=== PATIENT | male | born 1985 | race Caucasian/White ===

== ENCOUNTER 2025-02-04 19:29 | Observation (INO) ==
[2025-02-04 20:07] LABS: BLOOD/HEMOGLOBIN,URINE NEGATIVE (NEGATIVE); LEUKOCYTE ESTERASE ,URINE NEGATIVE (NEGATIVE); NITRITES,URINE NEGATIVE (NEGATIVE)
[2025-02-04 20:15] LABS: MEAN PLATELET VOLUME 8.1 fL (7.4-11.0); RED CELL DISTRIBUTION WIDTH 15.7 % (11.6-16.5)
[2025-02-04 20:17] LABS: APPEARANCE,URINE CLEAR (CLEAR)
[2025-02-04 20:18] LABS: CALCIUM OXALATE CRYSTALS,UR MANY /HPF (NEGATIVE); SQUAMOUS EPITHELIAL CELL,UR FEW /HPF (NEGATIVE)
[2025-02-04 20:24] LABS: CREATININE 1.10 mg/dL (0.70-1.30); eGFR NON BLACK RACES > 60 (>60)
--- NOTE | 2025-02-04 20:31 | DR.EXTPAIN ---
HPI Time seen Time Seen by Provider: 02/04/25 20:29 PCP Primary Care Physician: deloris Complaint/Symptoms Chief Complaint Doctor Comments: 39-year-old male presents to the ED from home POV with bilateral leg swelling x 3 days Chief Complaint:: pt c/o bilateral feet and leg swelling that started about three days ago and seem to be getting worse. Source History Provided: Patient Mode of arrival Mode of Arrival: Ambulatory Timing Onset of Chief Complaint: 02/04/25 PMH PMH Past Medical History: Yes Past Medical History: Arthritis, Depression, Gout and Hypertension Past Surgical History: No Surgical History: Other Family History History of Family Medical Conditions: Yes Family Medical History: Coronary Artery Disease and Hypertension Social History Alcohol Use: None Do you use any recreational Drugs:: Yes (Marijuana) Lives With: Family Lives Where: Home Infectious screening Have you traveled outside the country in the last 6 months?: No Isolation: Standard ROS Review of Systems Constitutional: No Symptoms Reported Eyes: No Symptoms Reported ENTM: No Symptoms Reported Respiratoy: No Symptoms Reported Cardiovascular: See HPI and Other (Bilateral leg swelling) Gastrointestinal/Abdominal: No Symptoms Reported Genitourinary: No Symptoms Reported Neurological: No Symptoms Reported Musculoskeletal: No Symptoms Reported Integumentary: No Symptoms Reported Hematologic/Lymphatic: No Symptoms Reported Endocrine: No Symptoms Reported Psychiatric: No Symptoms Reported All Other Systems: Reviewed and Negative PE Vital Signs Vitals: Vital Signs Temperature 97.8 F Pulse Rate 90 Respiratory Rate 20 Blood Pressure 142/68 O2 Sat by Pulse Oximetry 100 General Limitations: No Limitations General Appearance: Alert and In No Apparent Distress Head Head Exam: Normal Inspection Eyes Eye exam: Normal Appearance ENT ENT Exam: Normal Exam Neck Neck Exam: Normal Inspection Chest Chest Inspection: Normal Inspection Respiratory Respiratory Exam: Normal Lung Sounds Bilat Cardiovascular Cardiovascular Exam: Regular Rate and Normal Rhythm Abdominal Exam Abdominal Exam: Normal Inspection, Normal Bowel Sounds and Soft Extremities Extremities Exam: Normal Inspection Lower Extremities Lower Leg Exam: Full ROM and Swelling Back Back Exam: Normal Inspection Neurological Neurological Exam: Alert, Oriented X3 and CN II-XII Intact Psychiatric Psychiatric Exam: Normal Affect and Normal Mood Skin Skin Exam: Warm, Dry, Intact and Normal Color COURSE Treatment Treatment: Discussed with patient reviewed findings patient agrees to admission. Discussed with Dr. Encinas will admit ROR Labs Reviewed 02/04/25 20:03 02/04/25 20:03 Laboratory: WBC 11.5 X10^3/uL (3.6-10.0) H 02/04/25 20:03 RBC 2.68 X10^6/uL (4.7-6.0) L 02/04/25 20:03 Hgb 9.8 g/dL (13.5-18.0) L 02/04/25 20:03 Hct 28.3 % (42.0-54.0) L 02/04/25 20: MCV 105.5 fL (80.0-100.0) H 02/04/25 20: MCH 36.6 pg (27.0-34.0) H 02/04/25 20: MCHC 34.7 g/dL (33.0-35.0) 02/04/25 20: RDW 15.7 % (11.6-16.5) 02/04/25 20: Plt Count 124 X10^3/uL (150.0-450.0) L 02/04/25 20: Plt Count Comment Decreased (ADEQUATE) 02/04/25 20: MPV 8.1 fL (7.4-11.0) 02/04/25 20: Neut % (Auto) 61.1 % (42.0-75.0) 02/04/25 20: Lymph % (Auto) 24.4 % (21.0-51.0) 02/04/25 20: [place] % (Auto) 7.5 % (0.0-13.0) 02/04/25 20: Eos % (Auto) 5.7 % (0.9-2.9) H 02/04/25 20: Baso % (Auto) 1.3 % (0.2-1.0) H 02/04/25 20:03 Neut # (Auto) 7.0 x10^3/uL (2.2-4.8) H 02/04/25 20:03 Lymph # (Auto) 2.8 X10^3/uL (1.3-2.9) 02/04/25 20:03 [place] # (Auto) 0.9 x10^3/uL (0.3-0.8) H 02/04/25 20:03 Eos # (Auto) 0.7 x10^3/uL (0.0-0.2) H 02/04/25 20:03 Baso # (Auto) 0.2 X10^3/uL (0.0-0.1) H 02/04/25 20:03 Absolute Nucleated RBC 0.2 /100WBC 02/04/25 20:03 Plt Morphology Comment Normal (NORMAL) 02/04/25 20: RBC Morphology Abnormal (NORMAL) 02/04/25 20: Macrocytosis 1+ A 02/04/25 20:03 Sodium 139 mmol/L (136-145) 02/04/25 20:03 Corrected Sodium TNP 02/04/25 20: Potassium 3.7 mmol/L (3.5-5.1) 02/04/25 20: Chloride 104 mmol/L (98-107) 02/04/25 20: Carbon Dioxide 25.8 mmol/L (21-32) 02/04/25 20: BUN 7 mg/dL (7-18) 02/04/25 20: Creatinine 1.10 mg/dL (0.70-1.30) 02/04/25 20:03 Est GFR (MDRD) Af Amer > 60 (>60) 02/04/25 20:03 Est GFR (MDRD) Non-Af > 60 (>60) 02/04/25 20: Glucose 95 mg/dL (65-99) 02/04/25 20: Calcium 8.5 mg/dL (8.5-10.1) 02/04/25 20: Corrected Calcium TNP 02/04/25 20: Total Bilirubin 5.60 mg/dL (0.2-1.0) H 02/04/25 20:03 AST 92 Units/L (15-37) H 02/04/25 20:03 ALT 37 Units/L (12-78) 02/04/25 20:03 Alkaline Phosphatase 203 Units/L (46-116) H 02/04/25 20: B-Natriuretic Peptide 131 pg/mL (0-79) H 02/04/25 20:03 Total Protein 7.7 g/dL (6.4-8.2) 02/04/25 20: Albumin 3.4 g/dL (3.4-5.0) 02/04/25 20: Globulin 4.3 g/dL (2.5-4.5) 02/04/25 20: Albumin/Globulin Ratio 0.8 Ratio (1.1-2.1) L 02/04/25 20: Specimen Type Clean catch urine 02/04/25 20: Urine Color Yellow (YELLOW) 02/04/25 20: Urine Appearance Clear (CLEAR) 02/04/25: Urine pH 6.0 (5.0 - 8.0) 02/04/25 20: Ur Specific [place] 1.020 (1.000-1.030) 02/04/25: Urine Protein 2+ (NEGATIVE) 02/04/25: Urine Glucose (UA) Negative (NEGATIVE) 02/04/25: Urine Ketones Negative (NEGATIVE) 02/04/25 20: Urine Blood Negative (NEGATIVE) 02/04/25: Urine Nitrite Negative (NEGATIVE) 02/04/25: Urine Bilirubin Negative (NEGATIVE) 02/04/25: Urine Urobilinogen 1+ (NORMAL) 02/04/25 20: Ur Leukocyte Esterase Negative (NEGATIVE) 02/04/25: Urine RBC 10-20 /HPF (0-3) A 02/04/25 20: Urine WBC 0-2 /HPF (0-5) 02/04/25 20: Ur Squamous Epith Cells Few /HPF (NEGATIVE) 02/04/25 20: Calcium Oxalate Crystal Many /HPF (NEGATIVE) 02/04/25 20: Urine Bacteria Negative /HPF (NEGATIVE) 02/04/25 20: Granular Casts Moderate /LPF (NEGATIVE) 02/04/25 20: Urine Mucus Many /HPF (NEGATIVE) 02/04/25 20: Ur Culture Indicated? No/not indicated 02/04/25 20: Opioid Opioid Risk Tool Age (Maximo box if 16-45): No History of Preadolescent Sexual Abuse: No Total: 0 Total Score Risk Category: Low Risk Copyright: Tono GHOSH predicting aberrant behaviors Discharge Plan Diagnosis Discharge Problem: Elevated liver function tests, Ascites Discharge Plan Patient Disposition: 09 ADMITTED INPATIENT Condition: Stable Prescriptions: No Action [facility] Concerns: Post Hospitalization: new medications and changes needed to prevent readmission or further decline. Pt educated and given instructions on all concerns. Plan of Treatment: Continue with present treatment and follow up plan. Pt is to keep follow up appointment as instructed and take medications as ordered. Follow ups/Referrals Follow ups/Referrals: NFD,None [Primary Care Provider] - 3 days Instructions Print Language: CITIZEN OF [place]
[2025-02-04 20:41] LABS: PLATELET MORPHOLOGY COMMENT NORMAL (NORMAL)
--- NOTE | 2025-02-04 22:47 | CT ---
EXAM: CT ABDOMEN AND PELVIS WITHOUT CONTRAST HISTORY: pt c/o bilateral feet and leg swelling that started about three days ago and seem to be getting worse; ELEV BILIRUBIN, BLOOD IN URINE ; GOUT, HTN COMPARISON: None TECHNIQUE: Axial images were obtained of the abdomen and pelvis without IV contrast. Sagittal and coronal reformatted images were provided. All images were reviewed in a variety of windows and levels. RADIATION REDUCTION TECHNIQUE: Automated exposure control, adjustment of the mA or kV according to patient size, or iterative reconstruction techniques were used. FINDINGS: Please note that lack of IV contrast does limit evaluation of the soft tissues and vascular detail. The visualized lower lung zones are clear. The heart size is within normal limits. There is no evidence of a pericardial effusion. The pancreas, adrenal glands, and kidneys are grossly unremarkable. Gallbladder is distended. The liver is slightly decreased in size suggesting cirrhosis. The spleen is mildly enlarged measuring 14 cm in length. There is a moderate volume of ascites throughout the abdomen and pelvis. There is no evidence of stones or signs of obstructive uropathy. The stomach, small bowel, and colon are grossly unremarkable. There are no inflammatory changes in the right lower quadrant to suggest secondary signs of acute appendicitis. Normal appendix right lower quadrant. There is no evidence of retroperitoneal or mesenteric lymphadenopathy. The visualized bones are intact. There are no concerning lytic or blastic lesions identified. IMPRESSION: Moderate volume ascites within the abdomen and pelvis. Mild splenomegaly with suspected cirrhotic liver. THIS IS AN ELECTRONICALLY VERIFIED FINAL REPORT 02/04/2025 10:44 PM - Electronically signed by Leon Trinh MD
[2025-02-04] MEDS ORDERED: NORCO 5/325 MG TAB PO PRN (23:20)
[2025-02-04] MEDS ORDERED: CONSULT PHARMACY - POTASSIUM & MAGNESIUM XX SCH (23:45)
[2025-02-05 02:14] VITALS: BMI 31.3
[2025-02-05] MEDS: ULTRAM PO PRN (04:27)
[2025-02-05 05:54] LABS: MEAN PLATELET VOLUME 8.1 fL (7.4-11.0); RED CELL DISTRIBUTION WIDTH 15.9 % (11.6-16.5)
[2025-02-05 06:12] LABS: PLATELET MORPHOLOGY COMMENT NORMAL (NORMAL)
[2025-02-05 06:13] LABS: COR CA(FOR HYPOALB) 9.0 mg/dL (8.5-10.1); CREATININE 0.94 mg/dL (0.70-1.30); eGFR NON BLACK RACES > 60 (>60)
[2025-02-05] MEDS: TYLENOL 325 MG TAB PO PRN ×2 (08:00→23:57)
[2025-02-05] MEDS ORDERED: ROXICODONE TAB 5 MG PO PRN (10:14)
[2025-02-05] MEDS: ALDACTONE TAB 25 MG PO SCH (11:06)
[2025-02-05] MEDS: LASIX IVP NR (11:06)
[2025-02-05] MEDS ORDERED: PHARMACY CONSULT XX SCH (12:00)
[2025-02-05] MEDS: COLCRYS TAB 0.6 MG PO ONE ×2 (12:54→13:56)
--- NOTE | 2025-02-05 14:25 | US ---
EXAM: ULTRASOUND LIVER HISTORY: > liver enzymes , cirrosis; COMPARISON: CT dated 02/04/2025. TECHNIQUE: Ultrasound of the right upper quadrant was performed. Color and spectral doppler imaging was utilized. FINDINGS: Liver/bile ducts: Heterogeneous and diffusely hyperechoic parenchyma. No focal liver lesion identified. No intrahepatic biliary dilatation. Common bile duct is not visualized. Dilated portal vein with recannulated umbilical vein, compatible with portal hypertension. Small volume perihepatic ascites. Gallbladder: Mildly distended. Layering debris/sludge. No shadowing gallstones. No significant gallbladder wall thickening. IMPRESSION: 1. Hepatic steatosis with heterogeneous parenchyma. Prominent portal vein with recannulated umbilical vein and small volume ascites. Findings are suggestive of cirrhosis and portal hypertension. 2. No evidence of biliary dilatation. Gallbladder sludge/layering debris. THIS IS AN ELECTRONICALLY VERIFIED FINAL REPORT 02/05/2025 2:21 PM - Electronically signed by Hubert Merlos MD
--- NOTE | 2025-02-05 16:15 | RAD ---
EXAM: ANKLE, RIGHT HISTORY: RT ANKLE PAIN, SWELLING; COMPARISON: None. TECHNIQUE: 3 views FINDINGS: No acute fracture or dislocation. Symmetric ankle mortise. Intact talar dome. Mild diffuse subcutaneous edema. No large ankle effusion. IMPRESSION: No acute osseous findings. THIS IS AN ELECTRONICALLY VERIFIED FINAL REPORT 02/05/2025 4:12 PM - Electronically signed by Hubert Merlos MD
[2025-02-05] MEDS: ZOFRAN INJ 4 MG VIAL IVP PRN (19:44)
[2025-02-05] MEDS: LIBRIUM PO PRN (19:44)
[2025-02-05] MEDS: COLACE CAP 100 MG PO SCH (20:25)
[2025-02-05] MEDS: ROCEPHIN VIAL 1 GRAM 1 G in NS 100 ML IV 100 ML IV SCH (23:58)
[2025-02-06 06:06] LABS: MEAN PLATELET VOLUME 8.2 fL (7.4-11.0); RED CELL DISTRIBUTION WIDTH 15.5 % (11.6-16.5)
[2025-02-06 06:20] LABS: COR CA(FOR HYPOALB) 9.2 mg/dL (8.5-10.1); COR NA(FOR HYPERGLY) 135 mmol/L (136-145); CREATININE 0.85 mg/dL (0.70-1.30); eGFR NON BLACK RACES > 60 (>60)
[2025-02-06 06:34] LABS: PLATELET MORPHOLOGY COMMENT NORMAL (NORMAL)
[2025-02-06] MEDS ORDERED: CONSULT PHARMACY - POTASSIUM & MAGNESIUM XX SCH (07:00)
[2025-02-06] MEDS: COLCRYS TAB 0.6 MG PO SCH (08:11)
[2025-02-06] MEDS: K-DUR TAB 20 MEQ PO SCH (08:11)
--- NOTE | 2025-02-06 08:47 | DR.H&P ---
H&P History & Physical for Day of: H&P Date: 02/05/25 Chief Complaint Chief Complaint: bilateral leg swelling abdominal distention History of Present Illness History of Present Illness: Patient is a 39-year-old male with a history of alcohol use disorder, gout, presenting with bilateral lower leg swelling and abdominal distention. He reports that symptoms started over a week ago and just has been gradually getting worse. Denies fevers or chills. Labs/imaging: WBC 7.8, hemoglobin 8.2, platelets 92, sodium 143, potassium 3.6, creatinine 0.94, glucose 95, total bili 5.3, AST 81, ALT 30, alk phos 146, UA negative, CT abdomen and pelvis was obtained that revealed moderate volume ascites within the abdomen and pelvis. Mild splenomegaly with suspected cirrhotic liver. Patient was admitted for ascites/anasarca. Will order IV Lasix 40 mg x 1 dose. Will also start patient on spironolactone 25 mg daily. Will obtain ultrasound of the liver, hepatitis panel, and echo. Will also consult general surgeryDr. Roberson for further evaluation. Will image his right ankle due to patient complaining about pain and does not recall any injury. Later he did report that he does have a history of gout and has had it in that ankle. Will start on colchicine. Place patient on CIWA protocol and order scheduled Librium for alcohol withdrawal prophylaxis. Otherwise continue current treatment plan. Continue closely monitor and follow-up labs/imaging. Past Medical History Past Medical History: Arthritis, Depression, Gout and Hypertension Past Surgical History Surgical History: Other Family History Family Medical History: Coronary Artery Disease and Hypertension Social History Does any household member use tobacco: No Alcohol Use: Heavy Drug Use: None Medications Home Medications: Home Medications Medication Instructions Recorded Confirmed Type NK 02/04/25 02/04/25 History Allergies Allergies Allergy/AdvReac Type Severity Reaction Status Date / Time No Known Allergies Allergy Verified 02/04/25 20:05 Labs 02/06/25 05:24 02/06/25 05:24 Labs: Laboratory WBC 13.1 X10^3/uL (3.6-10.0) H 02/06/25 05:24 RBC 2.20 X10^6/uL (4.7-6.0) L 02/06/25 05:24 Hgb 8.2 g/dL (13.5-18.0) L 02/06/25 05:24 Hct 23.2 % (42.0-54.0) L 02/06/25 05:24 MCV 105.4 fL (80.0-100.0) H 02/06/25 05:24 MCH 37.3 pg (27.0-34.0) H 02/06/25 05:24 MCHC 35.4 g/dL (33.0-35.0) H 02/06/25 05:24 RDW 15.5 % (11.6-16.5) 02/06/25 05:24 Plt Count 69 X10^3/uL (150.0-450.0) L 02/06/25 05:24 Plt Count Comment Decreased (ADEQUATE) 02/06/25 05:24 MPV 8.2 fL (7.4-11.0) 02/06/25 05:24 Neut % (Auto) 82.0 % (42.0-75.0) H 02/06/25 05:24 Lymph % (Auto) 9.7 % (21.0-51.0) L 02/06/25 05:24 [place] % (Auto) 7.6 % (0.0-13.0) 02/06/25 05:24 Eos % (Auto) 0.2 % (0.9-2.9) L 02/06/25 05:24 Baso % (Auto) 0.5 % (0.2-1.0) 02/06/25 05:24 Neut # (Auto) 10.7 x10^3/uL (2.2-4.8) H 02/06/25 05:24 Lymph # (Auto) 1.3 X10^3/uL (1.3-2.9) 02/06/25 05:24 [place] # (Auto) 1.0 x10^3/uL (0.3-0.8) H 02/06/25 05:24 Eos # (Auto) 0.0 x10^3/uL (0.0-0.2) 02/06/25 05:24 Baso # (Auto) 0.1 X10^3/uL (0.0-0.1) 02/06/25 05:24 Absolute Nucleated RBC 0.0 /100WBC 02/06/25 05:24 Plt Morphology Comment Normal (NORMAL) 02/06/25 05:24 RBC Morphology Abnormal (NORMAL) 02/06/25 05:24 Macrocytosis 1+ A 02/06/25 05:24 Sodium 135 mmol/L (136-145) L 02/06/25 05:24 Corrected Sodium 135 mmol/L (136-145) L 02/06/25 05:24 Potassium 3.4 mmol/L (3.5-5.1) L 02/06/25 05:24 Chloride 98 mmol/L (98-107) 02/06/25 05:24 Carbon Dioxide 27.3 mmol/L (21-32) 02/06/25 05:24 BUN 9 mg/dL (7-18) 02/06/25 05:24 Creatinine 0.85 mg/dL (0.70-1.30) 02/06/25 05:24 Est GFR (MDRD) Af Amer > 60 (>60) 02/06/25 05:24 Est GFR (MDRD) Non-Af > 60 (>60) 02/06/25 05:24 Glucose 116 mg/dL (65-99) H 02/06/25 05:24 Uric Acid 4.7 mg/dL (3.5-7.2) 02/05/25 05:38 Calcium 8.2 mg/dL (8.5-10.1) L 02/06/25 05:24 Corrected Calcium 9.2 mg/dL (8.5-10.1) 02/06/25 05:24 Magnesium 1.9 mg/dL (2.0-2.9) L 02/05/25 05:38 Total Bilirubin 10.40 mg/dL (0.2-1.0) H 02/06/25 05:24 AST 69 Units/L (15-37) H 02/06/25 05:24 ALT 28 Units/L (12-78) 02/06/25 05:24 Alkaline Phosphatase 131 Units/L (46-116) H 02/06/25 05:24 B-Natriuretic Peptide 131 pg/mL (0-79) H 02/04/25 20:03 Total Protein 6.4 g/dL (6.4-8.2) 02/06/25 05:24 Albumin 2.7 g/dL (3.4-5.0) L 02/06/25 05:24 Globulin 3.7 g/dL (2.5-4.5) 02/06/25 05:24 Albumin/Globulin Ratio 0.7 Ratio (1.1-2.1) L 02/06/25 05:24 Specimen Type Clean catch urine 02/04/25 20:00 Urine Color Yellow (YELLOW) 02/04/25 20:00 Urine Appearance Clear (CLEAR) 02/04/25 20: Urine pH 6.0 (5.0 - 8.0) 02/04/25 20:00 Ur Specific [place] 1.020 (1.000-1.030) 02/04/25 20:00 Urine Protein 2+ (NEGATIVE) 02/04/25 20:00 Urine Glucose (UA) Negative (NEGATIVE) 02/04/25 20: Urine Ketones Negative (NEGATIVE) 02/04/25 20:00 Urine Blood Negative (NEGATIVE) 02/04/25 20:00 Urine Nitrite Negative (NEGATIVE) 02/04/25: Urine Bilirubin Negative (NEGATIVE) 02/04/25 20: Urine Urobilinogen 1+ (NORMAL) 02/04/25 20:00 Ur Leukocyte Esterase Negative (NEGATIVE) 02/04/25 20:00 Urine RBC 10-20 /HPF (0-3) A 02/04/25 20:00 Urine WBC 0-2 /HPF (0-5) 02/04/25 20:00 Ur Squamous Epith Cells Few /HPF (NEGATIVE) 02/04/25 20:00 Calcium Oxalate Crystal Many /HPF (NEGATIVE) 02/04/25 20:00 Urine Bacteria Negative /HPF (NEGATIVE) 02/04/25 20: Granular Casts Moderate /LPF (NEGATIVE) 02/04/25 20:00 Urine Mucus Many /HPF (NEGATIVE) 02/04/25 20:00 Ur Culture Indicated? No/not indicated 02/04/25 20:00 Review of Systems Constitutional: No Symptoms Reported Eyes: No Symptoms Reported ENT: No Symptoms Reported Respiratory: No Symptoms Reported Cardiovascular: Edema (BLE) Gastrointestinal: Abdominal Pain Genitourinary: No Symptoms Reported Musculoskeletal: No Symptoms Reported Skin: No Symptoms Reported Neurological: No Symptoms Reported Physical Exam Vital Signs: Vital Signs Temperature 98.3 F Temperature 98.0 F Temperature 99.2 F Pulse Rate [Right Radial] 87 Pulse Rate [Right Radial] 87 Respiratory Rate 17 Respiratory Rate 16 Respiratory Rate 20 Blood Pressure [Left Arm] 128/60 Blood Pressure [Left Arm] 129/59 O2 Sat by Pulse Oximetry 99 O2 Sat by Pulse Oximetry 97 Oriented: Normal Eyes: Normal Ear: Normal Nose: Normal Throat: Normal Respiratory: Clear Throughout Cardiovascular: Normal and Edema (BLE) : Normal Auscultation: Bowel Sounds: Normal Palpation: Normal Tenderness: Normal Skin: Normal Musculoskeletal: Normal Psychiatric: Normal Mood Description: Calm and Appropriate Affect: Normal Speech Pattern: Clear and Appropriate Assessment/Plan (1) Ascites: Qualifiers: Ascites type: due to alcoholic cirrhosis Qualified Code(s): K70.31 - Alcoholic cirrhosis of liver with ascites Status: Acute Plan: IV lasix start spironolactone consult general surgery-Dr Yao (2) Elevated liver function tests: Status: Acute Plan: u/s liver hepatitis panel (3) Exacerbation of gout: Status: Acute Plan: start colchicine (4) Alcohol abuse: Status: Acute Plan: [facility] protocol order librium Review H&P Reviewed: Yes Patient was examined?: Yes
[2025-02-06] MEDS: MAG-OX TAB PO SCH (10:58)
--- NOTE | 2025-02-06 11:49 | PCM.PROG ---
Progress Note Progress Note for Day of Date of Exam: 02/06/25 Subjective Subjective: Patient seen at bedside, overnight patient had a temp of 101.4. Blood cultures were collected and he was started on IV Rocephin. He is currently afebrile. He is currently admitted for ascites, lower extremity edema and cirrhosis. He denies nausea, vomiting or diarrhea. He states abdominal pain and distention has improved. He still has lower extremity edema. Liver ultrasound was done yesterday which showed cirrhosis, portal hypertension and gallbladder sludge. Right ankle x-ray showed mild subcutaneous edema. He is currently on colchicine for gout flareup. Hepatitis panel is pending. Dr. Rios has been consulted. Labs/imaging reviewed: - WBC 13.1 hemoglobin 8.2 platelets 69 potassium 3.4 creatinine 0.85 magnesium 1.5 total bili 10.40 AST 69 ALT 28 - Liver ultrasound reviewed - Hepatitis panel pending Plan: Continue IV antibiotics, follow pending cultures. Follow surgery recommendations. Replace electrolytes as per protocol. Continue Aldactone, add IV Lasix. Check direct bilirubin and lactic acid. Follow hepatitis panel. SCDs. Continue CIWA protocol. Monitor a.m. labs and imaging. Time spent for clinical assessment, reviewing labs/imaging, physical exam, decision making and documentation greater than 45 mins. Past Medical Family Social History Allergies: Allergies No Known Allergies Allergy (Verified 02/04/25 20:05) Vital Signs and I&O's Vital Signs: Vital Signs Temperature 98.3 F Temperature 98.0 F Pulse Rate [Right Radial] 87 Pulse Rate [Right Radial] 87 Respiratory Rate 17 Respiratory Rate 16 Blood Pressure [Left Arm] 128/60 Blood Pressure [Left Arm] 129/59 O2 Sat by Pulse Oximetry 99 O2 Sat by Pulse Oximetry 97 Intake and Output: Intake & Output 02/03/25 02/04/25 02/05/25 02/06/25 23:59 23:59 23:59 23:59 Intake Total 880 / 880 Output Total 1075 / 1075 Balance -195 / -195 Physical Exam Oriented: Normal Eyes: Normal Ear: Normal Nose: Normal Throat: Normal Respiratory: Normal Cardiovascular: Normal and Edema (BLE) Auscultation: Bowel Sounds: Normal Tenderness: Diffuse, Periumbilical and Mild Skin: Normal Musculoskeletal: Normal Psychiatric: Normal Mood Description: Calm and Appropriate Affect: Normal Speech Pattern: Clear and Appropriate Laboratory and Diagnostics 02/06/25 05:24 02/06/25 05:24 Labs: Laboratory WBC 13.1 X10^3/uL (3.6-10.0) H 02/06/25 05:24 RBC 2.20 X10^6/uL (4.7-6.0) L 02/06/25 05:24 Hgb 8.2 g/dL (13.5-18.0) L 02/06/25 05:24 Hct 23.2 % (42.0-54.0) L 02/06/25 05:24 MCV 105.4 fL (80.0-100.0) H 02/06/25 05:24 MCH 37.3 pg (27.0-34.0) H 02/06/25 05:24 MCHC 35.4 g/dL (33.0-35.0) H 02/06/25 05:24 RDW 15.5 % (11.6-16.5) 02/06/25 05:24 Plt Count 69 X10^3/uL (150.0-450.0) L 02/06/25 05:24 Plt Count Comment Decreased (ADEQUATE) 02/06/25 05:24 MPV 8.2 fL (7.4-11.0) 02/06/25 05:24 Neut % (Auto) 82.0 % (42.0-75.0) H 02/06/25 05:24 Lymph % (Auto) 9.7 % (21.0-51.0) L 02/06/25 05:24 [place] % (Auto) 7.6 % (0.0-13.0) 02/06/25 05:24 Eos % (Auto) 0.2 % (0.9-2.9) L 02/06/25 05:24 Baso % (Auto) 0.5 % (0.2-1.0) 02/06/25 05:24 Neut # (Auto) 10.7 x10^3/uL (2.2-4.8) H 02/06/25 05:24 Lymph # (Auto) 1.3 X10^3/uL (1.3-2.9) 02/06/25 05:24 [place] # (Auto) 1.0 x10^3/uL (0.3-0.8) H 02/06/25 05:24 Eos # (Auto) 0.0 x10^3/uL (0.0-0.2) 02/06/25 05:24 Baso # (Auto) 0.1 X10^3/uL (0.0-0.1) 02/06/25 05:24 Absolute Nucleated RBC 0.0 /100WBC 02/06/25 05:24 Plt Morphology Comment Normal (NORMAL) 02/06/25 05:24 RBC Morphology Abnormal (NORMAL) 02/06/25 05:24 Macrocytosis 1+ A 02/06/25 05:24 Sodium 135 mmol/L (136-145) L 02/06/25 05:24 Corrected Sodium 135 mmol/L (136-145) L 02/06/25 05:24 Potassium 3.4 mmol/L (3.5-5.1) L 02/06/25 05:24 Chloride 98 mmol/L (98-107) 02/06/25 05:24 Carbon Dioxide 27.3 mmol/L (21-32) 02/06/25 05:24 BUN 9 mg/dL (7-18) 02/06/25 05:24 Creatinine 0.85 mg/dL (0.70-1.30) 02/06/25 05:24 Est GFR (MDRD) Af Amer > 60 (>60) 02/06/25 05:24 Est GFR (MDRD) Non-Af > 60 (>60) 02/06/25 05:24 Glucose 116 mg/dL (65-99) H 02/06/25 05:24 Uric Acid 4.7 mg/dL (3.5-7.2) 02/05/25 05:38 Calcium 8.2 mg/dL (8.5-10.1) L 02/06/25 05:24 Corrected Calcium 9.2 mg/dL (8.5-10.1) 02/06/25 05:24 Magnesium 1.5 mg/dL (2.0-2.9) L 02/06/25 05:24 Total Bilirubin 10.40 mg/dL (0.2-1.0) H 02/06/25 05:24 AST 69 Units/L (15-37) H 02/06/25 05:24 ALT 28 Units/L (12-78) 02/06/25 05:24 Alkaline Phosphatase 131 Units/L (46-116) H 02/06/25 05:24 B-Natriuretic Peptide 131 pg/mL (0-79) H 02/04/25 20:03 Total Protein 6.4 g/dL (6.4-8.2) 02/06/25 05:24 Albumin 2.7 g/dL (3.4-5.0) L 02/06/25 05:24 Globulin 3.7 g/dL (2.5-4.5) 02/06/25 05:24 Albumin/Globulin Ratio 0.7 Ratio (1.1-2.1) L 02/06/25 05:24 Specimen Type Clean catch urine 02/04/25 20:00 Urine Color Yellow (YELLOW) 02/04/25 20: Urine Appearance Clear (CLEAR) 02/04/25 20:00 Urine pH 6.0 (5.0 - 8.0) 02/04/25 20:00 Ur Specific [place] 1.020 (1.000-1.030) 02/04/25 20: Urine Protein 2+ (NEGATIVE) 02/04/25 20:00 Urine Glucose (UA) Negative (NEGATIVE) 02/04/25 20:00 Urine Ketones Negative (NEGATIVE) 02/04/25 20: Urine Blood Negative (NEGATIVE) 02/04/25 20: Urine Nitrite Negative (NEGATIVE) 02/04/25 20: Urine Bilirubin Negative (NEGATIVE) 02/04/25 20:00 Urine Urobilinogen 1+ (NORMAL) 02/04/25 20: Ur Leukocyte Esterase Negative (NEGATIVE) 02/04/25 20:00 Urine RBC 10-20 /HPF (0-3) A 02/04/25 20: Urine WBC 0-2 /HPF (0-5) 02/04/25 20:00 Ur Squamous Epith Cells Few /HPF (NEGATIVE) 02/04/25 20: Calcium Oxalate Crystal Many /HPF (NEGATIVE) 02/04/25 20:00 Urine Bacteria Negative /HPF (NEGATIVE) 02/04/25 20: Granular Casts Moderate /LPF (NEGATIVE) 02/04/25 20: Urine Mucus Many /HPF (NEGATIVE) 02/04/25 20: Ur Culture Indicated? No/not indicated 02/04/25 20:00 Plan (1) Ascites: Status: Acute Qualifiers: Ascites type: due to alcoholic cirrhosis Qualified Code(s): K70.31 - Alcoholic cirrhosis of liver with ascites (2) Elevated liver function tests: Status: Acute (3) Exacerbation of gout: Status: Acute (4) Alcohol abuse: Status: Acute (5) Hypokalemia: Status: Acute (6) Hypomagnesemia: Status: Acute
[2025-02-06] MEDS: PROTONIX INJ 40 MG VIAL IVP SCH (12:08)
[2025-02-06] MEDS: LASIX IVP SCH (12:08)
[2025-02-06] MEDS: NS 250 ML IV 250 ML IV PRN (20:10)
[2025-02-07 04:54] LABS: MEAN PLATELET VOLUME 8.8 fL (7.4-11.0); RED CELL DISTRIBUTION WIDTH 14.7 % (11.6-16.5)
[2025-02-07 05:13] LABS: COR CA(FOR HYPOALB) 9.1 mg/dL (8.5-10.1); CREATININE 0.81 mg/dL (0.70-1.30); eGFR NON BLACK RACES > 60 (>60)
[2025-02-07 05:20] LABS: PLATELET MORPHOLOGY COMMENT NORMAL (NORMAL)
[2025-02-07] MEDS ORDERED: CONSULT PHARMACY - POTASSIUM & MAGNESIUM XX SCH (06:00)
[2025-02-07 07:55] VITALS: RESP 18
[2025-02-07] MEDS: K-DUR TAB 20 MEQ PO SCH (08:12)
[2025-02-07] MEDS: MAG-OX TAB PO SCH (08:12)
[2025-02-07 12:00] VITALS: BP 131/70; PULSE 80; TEMP 98.5; O2SAT 100
--- NOTE | 2025-02-09 15:32 | W.DIS.FURT ---
Summary of Discharge Discharge Summary of Date Date of Exam: 02/07/25 Admission Date Date of Admission: 02/04/25 Admission Diagnosis Patient Problems (Updated 02/06/25 @ 11:49 by Shania Rodriguez MD) Ascites (Acute) R18.8 Elevated liver function tests (Acute) R79.89 Hospital Course: Patient is a 39-year-old male with a history of alcohol use disorder, gout, presenting with bilateral lower leg swelling and abdominal distention. He reports that symptoms started over a week ago and just has been gradually getting worse. Denies fevers or chills. Labs/imaging: WBC 7.8, hemoglobin 8.2, platelets 92, sodium 143, potassium 3.6, creatinine 0.94, glucose 95, total bili 5.3, AST 81, ALT 30, alk phos 146, UA negative, CT abdomen and pelvis was obtained that revealed moderate volume ascites within the abdomen and pelvis. Mild splenomegaly with suspected cirrhotic liver. Patient was admitted for ascites/anasarca. Started on IV Lasix and Aldactone. Liver ultrasound was done which showed cirrhosis. Echo cardiogram was also done, see scanned report. Hepatitis panel was pending. Dr. Rios was also consulted, did not recommend paracentesis. Patient was placed on [facility] protocol for alcohol withdrawal. His labs were monitored daily and electrolytes replaced as needed. His total bilirubin did elevate but patient was not having any nausea, vomiting or abdominal pain. He reported improvement in symptoms. His levels improved prior to discharge. He was educated on following up with PCP and GI. He was stable for discharge. Vital Signs: Vital Signs (72 hours) 02/04/25 19:33 02/04/25 23:43 02/05/25 00:43 Temperature 97.8 F Pulse Rate 90 Pulse Rate [Right Radial] Respiratory Rate 20 20 Blood Pressure 142/68 Blood Pressure [Left Arm] 133/63 O2 Sat by Pulse Oximetry 100 Oxygen Delivery Method Room Air Room Air 02/05/25 04:00 02/05/25 04:27 02/05/25 05:27 Temperature 98.2 F Pulse Rate Pulse Rate [Right Radial] 75 Respiratory Rate 17 19 18 Blood Pressure Blood Pressure [Left Arm] 142/74 O2 Sat by Pulse Oximetry 100 Oxygen Delivery Method Room Air 02/05/25 07:00 02/05/25 07:51 02/05/25 08:00 Temperature 97.9 F Pulse Rate Pulse Rate [Right Radial] 81 Respiratory Rate 19 19 Blood Pressure Blood Pressure [Left Arm] 140/68 O2 Sat by Pulse Oximetry 100 Oxygen Delivery Method Room Air Room Air 02/05/25 09:00 02/05/25 11:37 02/05/25 12:00 Temperature 98.7 F Pulse Rate Pulse Rate [Right Radial] 82 Respiratory Rate 19 19 18 Blood Pressure Blood Pressure [Left Arm] 143/67 O2 Sat by Pulse Oximetry 99 Oxygen Delivery Method Room Air 02/05/25 12:37 02/05/25 16:00 02/05/25 19:00 Temperature 99.2 F Pulse Rate Pulse Rate [Right Radial] 86 Respiratory Rate 19 18 Blood Pressure Blood Pressure [Left Arm] 136/67 O2 Sat by Pulse Oximetry 100 Oxygen Delivery Method Room Air Room Air 02/05/25 20:00 02/05/25 20:59 02/05/25 21:03 Temperature 99.8 F H Pulse Rate Pulse Rate [Right Radial] 100 H Respiratory Rate 22 20 Blood Pressure Blood Pressure [Left Arm] 160/75 152/72 O2 Sat by Pulse Oximetry 98 98 Oxygen Delivery Method Room Air Room Air 02/05/25 22:03 02/05/25 23:57 02/06/25 00:00 Temperature 101.4 F H Pulse Rate Pulse Rate [Right Radial] 101 H Respiratory Rate 20 20 19 Blood Pressure Blood Pressure [Left Arm] 140/67 O2 Sat by Pulse Oximetry 98 Oxygen Delivery Method Room Air 02/06/25 00:41 02/06/25 00:57 02/06/25 04:00 Temperature 99.2 F 98.0 F Pulse Rate Pulse Rate [Right Radial] 87 Respiratory Rate 20 16 Blood Pressure Blood Pressure [Left Arm] 129/59 O2 Sat by Pulse Oximetry 97 Oxygen Delivery Method Room Air 02/06/25 07:00 02/06/25 07:57 02/06/25 11:51 Temperature 98.3 F 98.1 F Pulse Rate Pulse Rate [Right Radial] 87 77 Respiratory Rate 17 19 Blood Pressure Blood Pressure [Left Arm] 128/60 130/59 O2 Sat by Pulse Oximetry 99 100 Oxygen Delivery Method Room Air Room Air Room Air 02/06/25 16:00 02/06/25 19:00 02/06/25 19:48 Temperature 98.0 F 99.2 F Pulse Rate Pulse Rate [Right Radial] 80 84 Respiratory Rate 19 19 Blood Pressure Blood Pressure [Left Arm] 149/71 135/59 O2 Sat by Pulse Oximetry 100 97 Oxygen Delivery Method Room Air Room Air Room Air 02/06/25 20:10 02/06/25 21:10 02/06/25 23:57 Temperature 98.7 F Pulse Rate Pulse Rate [Right Radial] 82 Respiratory Rate 19 18 20 Blood Pressure Blood Pressure [Left Arm] 118/59 O2 Sat by Pulse Oximetry 96 Oxygen Delivery Method Room Air 02/07/25 04:00 02/07/25 07:00 02/07/25 07:54 Temperature 98.3 F 98.0 F Pulse Rate Pulse Rate [Right Radial] 85 79 Respiratory Rate 20 18 Blood Pressure Blood Pressure [Left Arm] 116/57 127/60 O2 Sat by Pulse Oximetry 96 98 Oxygen Delivery Method Room Air Room Air Room Air Labs: Laboratory Last Values WBC 9.1 X10^3/uL (3.6-10.0) 02/07/25 04:22 RBC 2.15 X10^6/uL (4.7-6.0) L 02/07/25 04:22 Hgb 8.1 g/dL (13.5-18.0) L 02/07/25 04:22 Hct 22.8 % (42.0-54.0) L 02/07/25 04:22 MCV 106.1 fL (80.0-100.0) H 02/07/25 04:22 MCH 37.7 pg (27.0-34.0) H 02/07/25 04:22 MCHC 35.5 g/dL (33.0-35.0) H 02/07/25 04:22 RDW 14.7 % (11.6-16.5) 02/07/25 04:22 Plt Count 70 X10^3/uL (150.0-450.0) L 02/07/25 04:22 Plt Count Comment Decreased (ADEQUATE) 02/07/25 04:22 MPV 8.8 fL (7.4-11.0) 02/07/25 04:22 Neut % (Auto) 66.9 % (42.0-75.0) 02/07/25 04:22 Lymph % (Auto) 20.9 % (21.0-51.0) L 02/07/25 04:22 [place] % (Auto) 9.4 % (0.0-13.0) 02/07/25 04:22 Eos % (Auto) 2.2 % (0.9-2.9) 02/07/25 04:22 Baso % (Auto) 0.6 % (0.2-1.0) 02/07/25 04:22 Neut # (Auto) 6.1 x10^3/uL (2.2-4.8) H 02/07/25 04:22 Lymph # (Auto) 1.9 X10^3/uL (1.3-2.9) 02/07/25 04:22 [place] # (Auto) 0.9 x10^3/uL (0.3-0.8) H 02/07/25 04:22 Eos # (Auto) 0.2 x10^3/uL (0.0-0.2) 02/07/25 04:22 Baso # (Auto) 0.1 X10^3/uL (0.0-0.1) 02/07/25 04:22 Absolute Nucleated RBC 0.1 /100WBC 02/07/25 04:22 Plt Morphology Comment Normal (NORMAL) 02/07/25 04:22 RBC Morphology Abnormal (NORMAL) 02/07/25 04:22 Macrocytosis 1+ A 02/07/25 04:22 Sodium 136 mmol/L (136-145) 02/07/25 04:22 Corrected Sodium TNP 02/07/25 04:22 Potassium 3.4 mmol/L (3.5-5.1) L 02/07/25 04:22 Chloride 100 mmol/L (98-107) 02/07/25 04:22 Carbon Dioxide 29.8 mmol/L (21-32) 02/07/25 04:22 BUN 11 mg/dL (7-18) 02/07/25 04:22 Creatinine 0.81 mg/dL (0.70-1.30) 02/07/25 04:22 Est GFR (MDRD) Af Amer > 60 (>60) 02/07/25 04:22 Est GFR (MDRD) Non-Af > 60 (>60) 02/07/25 04:22 Glucose 93 mg/dL (65-99) 02/07/25 04:22 Lactic Acid 1.5 mmol/L (0.4-2.0) 02/06/25 11:58 Uric Acid 4.7 mg/dL (3.5-7.2) 02/05/25 05:38 Calcium 7.9 mg/dL (8.5-10.1) L 02/07/25 04:22 Corrected Calcium 9.1 mg/dL (8.5-10.1) 02/07/25 04:22 Magnesium 1.8 mg/dL (2.0-2.9) L 02/07/25 04:22 Total Bilirubin 8.10 mg/dL (0.2-1.0) H 02/07/25 04:22 Direct Bilirubin 3.70 mg/dL (0-0.2) H 02/06/25 05:24 AST 43 Units/L (15-37) H 02/07/25 04:22 ALT 24 Units/L (12-78) 02/07/25 04:22 Alkaline Phosphatase 117 Units/L (46-116) H 02/07/25 04:22 B-Natriuretic Peptide 131 pg/mL (0-79) H 02/04/25 20:03 Total Protein 6.2 g/dL (6.4-8.2) L 02/07/25 04:22 Albumin 2.5 g/dL (3.4-5.0) L 02/07/25 04:22 Globulin 3.7 g/dL (2.5-4.5) 02/07/25 04:22 Albumin/Globulin Ratio 0.7 Ratio (1.1-2.1) L 02/07/25 04:22 Specimen Type Clean catch urine 02/04/25 20:00 Urine Color Yellow (YELLOW) 02/04/25 20:00 Urine Appearance Clear (CLEAR) 02/04/25 20:00 Urine pH 6.0 (5.0 - 8.0) 02/04/25 20:00 Ur Specific [place] 1.020 (1.000-1.030) 02/04/25 20:00 Urine Protein 2+ (NEGATIVE) 02/04/25 20:00 Urine Glucose (UA) Negative (NEGATIVE) 02/04/25 20:00 Urine Ketones Negative (NEGATIVE) 02/04/25 20:00 Urine Blood Negative (NEGATIVE) 02/04/25 20:00 Urine Nitrite Negative (NEGATIVE) 02/04/25 20:00 Urine Bilirubin Negative (NEGATIVE) 02/04/25 20:00 Urine Urobilinogen 1+ (NORMAL) 02/04/25 20:00 Ur Leukocyte Esterase Negative (NEGATIVE) 02/04/25 20:00 Urine RBC 10-20 /HPF (0-3) A 02/04/25 20:00 Urine WBC 0-2 /HPF (0-5) 02/04/25 20:00 Ur Squamous Epith Cells Few /HPF (NEGATIVE) 02/04/25 20:00 Calcium Oxalate Crystal Many /HPF (NEGATIVE) 02/04/25 20:00 Urine Bacteria Negative /HPF (NEGATIVE) 02/04/25 20:00 Granular Casts Moderate /LPF (NEGATIVE) 02/04/25 20:00 Urine Mucus Many /HPF (NEGATIVE) 02/04/25 20:00 Ur Culture Indicated? No/not indicated 02/04/25 20:00 Reason For Visit: ASCITES Discharge Diagnosis All Active Problems (Updated 02/06/25 @ 11:49 by Shania Rodriguez MD) Hypomagnesemia (Acute) Hypokalemia (Acute) Alcohol abuse (Acute) Ascites (Acute) Elevated liver function tests (Acute) Exacerbation of gout (Acute) Acute gout of left ankle (Acute) Acute conjunctivitis of both eyes (Acute) Plan of Treatment: Continue with present treatment and follow up plan. Pt is to keep follow up appointment as instructed and take medications as ordered. Discharge Medications Discharge Medications: No Known Allergies Allergy (Verified 02/04/25 20:05) New Prescriptions furosemide 20 mg tablet (Lasix) 20 mg PO QAM #30 tabs 02/07/25 [Rx] spironolactone 25 mg tablet 25 mg PO DAILY 30 days #30 tabs 02/07/25 [Rx] Discharge Disposition Discharge Disposition: home Discharge Condition: stable Discharge Plan Discharge Plan Hospital Course: Patient is a 39-year-old male with a history of alcohol use disorder, gout, presenting with bilateral lower leg swelling and abdominal distention. He reports that symptoms started over a week ago and just has been gradually getting worse. Denies fevers or chills. Labs/imaging: WBC 7.8, hemoglobin 8.2, platelets 92, sodium 143, potassium 3.6, creatinine 0.94, glucose 95, total bili 5.3, AST 81, ALT 30, alk phos 146, UA negative, CT abdomen and pelvis was obtained that revealed moderate volume ascites within the abdomen and pelvis. Mild splenomegaly with suspected cirrhotic liver. Patient was admitted for ascites/anasarca. Started on IV Lasix and Aldactone. Liver ultrasound was done which showed cirrhosis. Echo cardiogram was also done, see scanned report. Hepatitis panel was pending. Dr. Rios was also consulted, did not recommend paracentesis. Patient was placed on [facility] protocol for alcohol withdrawal. His labs were monitored daily and electrolytes replaced as needed. His total bilirubin did elevate but patient was not having any nausea, vomiting or abdominal pain. He reported improvement in symptoms. His levels improved prior to discharge. He was educated on following up with PCP and GI. He was stable for discharge. Patient Disposition: 01 HOME, SELF-CARE Condition: Stable Health Concerns: Post Hospitalization: new medications and changes needed to prevent readmission or further decline. Pt educated and given instructions on all concerns. Plan of Treatment: Continue with present treatment and follow up plan. Pt is to keep follow up appointment as instructed and take medications as ordered. Prescription drug monitoring program results: PDMP reviewed and no concerns identified Prescriptions: New spironolactone 25 mg Tablet 25 mg PO DAILY 30 Days Qty: 30 0RF furosemide [Lasix] 20 mg tablet 20 mg PO QAM Qty: 30 0RF Orders to Discharge Patient Discharge Orders: Discharge (Routine); Ordered 02/07/25 Ordered By: Shania Rodriguez Follow ups/Referrals Follow ups/Referrals: AMMON HORTON [STAFF PHYSICIAN, Surgical] - 2 WEEKS Referral Note: hospital follow up. Cirrhosis. Instructions Instructions: Alcohol Use Disorder, Alcohol Misuse and Dependence Information, Adult, Hypomagnesemia, Finding Treatment for Addiction Stand Alone Forms: Excuse From Work or School, Find Help Web Site, Post Hospital Follow Up Care Print Language: RUSSIAN
== END 2025-02-07 12:35 | disposition home or self-care (01) ==
LOC: MED/SURG 19:29 → ER 19:29 → MED/SURG 02-05 00:43
PROVIDERS: ADMIT Family Medicine; ATTEND Family Medicine
DX: K70.31 Alcoholic cirrhosis of liver with ascites; R79.89 Other specified abnormal findings of blood chemistry; E80.6 Other disorders of bilirubin metabolism; R10.84 Generalized abdominal pain; M1A.9XX0 Chronic gout, unspecified, without tophus (tophi); E83.42 Hypomagnesemia; M25.571 Pain in right ankle and joints of right foot; E87.6 Hypokalemia; R74.8 Abnormal levels of other serum enzymes; M19.90 Unspecified osteoarthritis, unspecified site; R26.89 Other abnormalities of gait and mobility; F32.89 Other specified depressive episodes; D72.828 Other elevated white blood cell count; F10.10 Alcohol abuse, uncomplicated; E87.1 Hypo-osmolality and hyponatremia; K76.6 Portal hypertension; R60.0 Localized edema

== ENCOUNTER 2025-03-23 15:35 | Observation (INO) ==
--- NOTE | 2025-03-23 16:50 | DR.GENAD ---
HPI Time Seen Time Seen by Provider: 03/23/25 16:49 PCP Primary Care Physician: none Complaint/Symptoms Chief Complaint Doctors Comments: 40-year-old male to ED from home POV states he has had pitting edema bilateral legs x 2 weeks Chief Complaint:: General Source History Provided: Patient Mode of Arrival Mode of Arrival: Ambulatory Timing Onset of Chief Complaint: 03/09/25 PMH PMH Past Medical History: Yes Past Medical History: Arthritis, Depression, Gout and Hypertension Past Surgical History: No Surgical History: Other Family History History of Family Medical Conditions: Yes Family Medical History: Coronary Artery Disease and Hypertension Social History Does patient currently use any type of tobacco product: No Have you used tobacco products in the last 12 months: No Type of Tobacco Use: None Does any household member use tobacco: No Alcohol Use: Heavy Do you use any recreational Drugs:: No Lives With: Family Lives Where: Home Infectious screening In the last 2 months have you had wt loss of >10#?: NO Have you had fever, night sweats or hemotysis?: No Have you traveled outside the country in the last 6 months?: No Isolation: Standard ROS Review of Systems Constitutional: No Symptoms Reported Eyes: No Symptoms Reported ENTM: No Symptoms Reported Respiratoy: No Symptoms Reported Cardiovascular: No Symptoms Reported Gastrointestinal/Abdominal: No Symptoms Reported Genitourinary: No Symptoms Reported Neurological: No Symptoms Reported Musculoskeletal: Leg Integumentary: No Symptoms Reported Hematologic/Lymphatic: No Symptoms Reported Endocrine: No Symptoms Reported Psychiatric: No Symptoms Reported All Other Systems: Reviewed and Negative PE Vital Signs Vitals: Vital Signs Temperature 98.1 F Pulse Rate 86 Respiratory Rate 18 Blood Pressure 159/74 O2 Sat by Pulse Oximetry 100 General Limitations: No Limitations General Appearance: Alert and In No Apparent Distress Head Head Exam: Normal Inspection Eyes Eye exam: Normal Appearance ENT ENT Exam: Normal Exam External Ear Exam: Normal External Inspection TM/Canal Exam: Bilateral: Normal Nose Exam: Normal Nose Exam Mouth Exam: Normal Inspection Throat Exam: Normal Inspection Neck Neck Exam: Normal Inspection Chest Chest Inspection: Normal Inspection Respiratory Respiratory Exam: Normal Lung Sounds Bilat Respiratory Exam: Bilateral: Clear to Auscultation Cardiovascular Cardiovascular Exam: Regular Rate and Normal Rhythm Abdominal Exam Abdominal Exam: Normal Inspection, Normal Bowel Sounds and Soft Extremities Extremities Exam: Tenderness (Bilateral calves and ankles) and Edema Back Back Exam: Normal Inspection Neurologic Neurological Exam: Alert and Oriented X3 Psychiatric Psychiatric Exam: Normal Affect and Normal Mood Skin Skin Exam: Warm, Dry, Intact and Normal Color COURSE Treatment Treatment: IMPRESSION: Negative for DVT bilaterally. Bilateral lower extremity edema. IMPRESSION: 1. Exam is markedly limited due to bolus timing. The central pulmonary arterial system does not demonstrate central filling defects to suggest pulmonary emboli. The distal branches beyond this point are not properly evaluated. Please note that this exam is considered markedly limited and therefore close monitoring with follow up imaging may be obtained as a clinically indicated. 2. Small bilateral pleural effusions are noted. 3. Tiny focus of consolidation is seen in the right upper lung zone. This may represent acute or chronic airspace disease. Follow-up to complete resolution may be obtained as clinically indicated. 4. The visualized portions of the upper abdominal structures demonstrates moderate amount of free fluid around the liver and spleen with gallbladder wall irregularity. IMPRESSION: Redemonstrated is a subtle undulating surface contour of the liver suggesting cirrhosis, correlate clinically. The umbilical vein is recanalized and dilated consistent with portal hypertension. No evidence for portal vein thrombosis. No evidence for thrombosis of the SMV or IMV. Mild amount of water density ascites within the abdomen extending toward the pelvis is similar to prior exam. The presence of this fluid could obscure detection of inflammatory processes or other pathology. The mild amount of abdominal ascites also extends into the peripancreatic area therefore can not exclude possibility for pancreatitis based on this exam, correlate with serum enzymes. Subcutaneous soft tissue edema about the abdomen and pelvis suggesting anasarca. Splenomegaly. Reevaluation 1st: Unchanged (Discussed with patient no PCP discussed with Dr. Khan will admit) [facility] Labs Reviewed 03/23/25 17:05 03/23/25 17:05 Laboratory: WBC 10.1 X10^3/uL (3.6-10.0) H 03/23/25 17:05 RBC 2.40 X10^6/uL (4.7-6.0) L 03/23/25 17:05 Hgb 8.7 g/dL (13.5-18.0) L 03/23/25 17:05 Hct 25.0 % (42.0-54.0) L 03/23/25 17:05 MCV 104.1 fL (80.0-100.0) H 03/23/25 17:05 MCH 36.2 pg (27.0-34.0) H 03/23/25 17:05 MCHC 34.8 g/dL (33.0-35.0) 03/23/25 17:05 RDW 14.8 % (11.6-16.5) 03/23/25 17:05 Plt Count 63 X10^3/uL (150.0-450.0) L 03/23/25 17:05 MPV 8.7 fL (7.4-11.0) 03/23/25 17:05 Neut % (Auto) 64.1 % (42.0-75.0) 03/23/25 17:05 Lymph % (Auto) 21.4 % (21.0-51.0) 03/23/25 17:05 [place] % (Auto) 8.3 % (0.0-13.0) 03/23/25 17:05 Eos % (Auto) 4.6 % (0.9-2.9) H 03/23/25 17:05 Baso % (Auto) 1.6 % (0.2-1.0) H 03/23/25 17:05 Neut # (Auto) 6.5 x10^3/uL (2.2-4.8) H 03/23/25 17:05 Lymph # (Auto) 2.2 X10^3/uL (1.3-2.9) 03/23/25 17:05 [place] # (Auto) 0.8 x10^3/uL (0.3-0.8) 03/23/25 17:05 Eos # (Auto) 0.5 x10^3/uL (0.0-0.2) H 03/23/25 17:05 Baso # (Auto) 0.2 X10^3/uL (0.0-0.1) H 03/23/25 17:05 Absolute Nucleated RBC 0.0 /100WBC 03/23/25 17:05 PT 18.9 SECONDS (11.8-14.3) 03/23/25 17:05 INR Target Range - 03/23/25 17:05 INR 1.56 (0.8-1.3) H 03/23/25 17:05 APTT 40.3 SECONDS (22.9-36.5) H 03/23/25 17:05 PTT Comment - 03/23/25 17:05 D-Dimer 7.91 ug/ml (0.0-0.57) H 03/23/25 17:05 Sodium 135 mmol/L (136-145) L 03/23/25 17:05 Corrected Sodium TNP 03/23/25 17:05 Potassium 4.3 mmol/L (3.5-5.1) 03/23/25 17:05 Chloride 101 mmol/L (98-107) 03/23/25 17:05 Carbon Dioxide 28.1 mmol/L (21-32) 03/23/25 17:05 BUN 13 mg/dL (7-18) 03/23/25 17:05 Creatinine 1.20 mg/dL (0.70-1.30) 03/23/25 17:05 Est GFR (MDRD) Af Amer > 60 (>60) 03/23/25 17:05 Est GFR (MDRD) Non-Af > 60 (>60) 03/23/25 17:05 Glucose 107 mg/dL (65-99) H 03/23/25 17:05 Calcium 8.6 mg/dL (8.5-10.1) 03/23/25 17:05 Corrected Calcium 9.2 mg/dL (8.5-10.1) 03/23/25 17:05 Total Bilirubin 8.90 mg/dL (0.2-1.0) H 03/23/25 17:05 AST 107 Units/L (15-37) H 03/23/25 17:05 ALT 38 Units/L (12-78) 03/23/25 17:05 Alkaline Phosphatase 186 Units/L (46-116) H 03/23/25 17:05 Troponin I High Sens 37.6 ng/L (4.0-60.0) 03/23/25 17:05 B-Natriuretic Peptide 215 pg/mL (0-79) H 03/23/25 17:05 Total Protein 7.0 g/dL (6.4-8.2) 03/23/25 17:05 Albumin 3.2 g/dL (3.4-5.0) L 03/23/25 17:05 Globulin 3.8 g/dL (2.5-4.5) 03/23/25 17:05 Albumin/Globulin Ratio 0.8 Ratio (1.1-2.1) L 03/23/25 17:05 Opioid Opioid Risk Tool Age (Maximo box if 16-45): Yes History of Preadolescent Sexual Abuse: No Total: 1 Total Score Risk Category: Low Risk Copyright: Tono GHOSH predicting aberrant behaviors Discharge Plan Diagnosis Discharge Problem: Ascites, Elevated liver function tests Discharge Plan Patient Disposition: ADMITTED INPATIENT Condition: Stable Prescriptions: No Action [facility] Concerns: Post Hospitalization: new medications and changes needed to prevent readmission or further decline. Pt educated and given instructions on all concerns. Plan of Treatment: Continue with present treatment and follow up plan. Pt is to keep follow up appointment as instructed and take medications as ordered. Follow ups/Referrals Follow ups/Referrals: [facility],None [Primary Care Provider] - 3 days Instructions Print Language: LITHUANIAN
[2025-03-23 17:18] LABS: MEAN PLATELET VOLUME 8.7 fL (7.4-11.0); RED CELL DISTRIBUTION WIDTH 14.8 % (11.6-16.5)
[2025-03-23 17:30] LABS: INR 1.56 (0.8-1.3)
[2025-03-23 17:43] LABS: COR CA(FOR HYPOALB) 9.2 mg/dL (8.5-10.1); CREATININE 1.20 mg/dL (0.70-1.30); eGFR NON BLACK RACES > 60 (>60)
[2025-03-23] MEDS: OMNIPAQUE 350 mg/mL 100 mL BTL IVP NR (19:06)
--- NOTE | 2025-03-23 20:14 | CT ---
EXAM: CT ABDOMEN AND PELVIS WITH CONTRAST HISTORY: swelling; Upon arrival 3+ pitting edema noted to patient feet and lower extremities, up to hi knees. Pt. reports increased swelling to bilateral lower extremities and feet x2 weeks. 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 Pt. reports both pain and numbnes to bilateral feet and legs. COMPARISON: CT dated February 04, 2025. TECHNIQUE: Axial CT images were obtained through the abdomen and pelvis after the intravenous administration of contrast. Coronal and sagittal reformatted images were included. All CT scans at this facility use dose modulation, iterative reconstruction, and/or weight based dosing when appropriate to reduce radiation dose to as low as reasonably achievable. FINDINGS: LOWER THORAX: Interval development of trace bilateral pleural effusions. LIVER: Redemonstrated is a subtle undulating surface contour of the liver suggesting cirrhosis, correlate clinically. No focal hepatic lesions are demonstrated. Liver measures 17 cm longitudinal. The umbilical vein is recanalized and dilated consistent with portal hypertension. No evidence for portal vein thrombosis. No evidence for thrombosis of the SMV or IMV. GALLBLADDER: Unremarkable. SPLEEN: Spleen measures 16 x 5.2 x 12 cm consistent with a splenic volume of 520 cc which is consistent with splenomegaly. No focal splenic lesions are demonstrated. PANCREAS: There is a mild amount of abdominal ascites that also extends into the peripancreatic area therefore can not exclude possibility for pancreatitis based on this exam, correlate with serum enzymes. Pancreas enhances uniformly. No evidence for pancreatic ductal dilatation. KIDNEYS/URETERS/BLADDER: Unremarkable. ADRENAL GLANDS: Unremarkable. ABDOMINAL AORTA: Calcifications of the abdominal aorta without aneurysmal dilatation. LYMPH NODES: No evidence of enlarged nodes. GI TRACT: No evidence for intestinal obstruction.The appendix is not clearly visualized; presence of ascites limits evaluation for appendicitis on this exam. ASCITES: Mild amount of water density ascites within the abdomen extending toward the pelvis is similar to prior exam. PNEUMOPERITONEUM: None. GENITALS: Prostate does not appear to be enlarged. ANTERIOR ABDOMINAL WALL: No evidence for anterior abdominal wall hernia. Subcutaneous soft tissue edema about the abdomen and pelvis suggesting anasarca. INGUINAL HERNIA:None. BONES: No evidence for acute osseous findings. IMPRESSION: Redemonstrated is a subtle undulating surface contour of the liver suggesting cirrhosis, correlate clinically. The umbilical vein is recanalized and dilated consistent with portal hypertension. No evidence for portal vein thrombosis. No evidence for thrombosis of the SMV or IMV. Mild amount of water density ascites within the abdomen extending toward the pelvis is similar to prior exam. The presence of this fluid could obscure detection of inflammatory processes or other pathology. The mild amount of abdominal ascites also extends into the peripancreatic area therefore can not exclude possibility for pancreatitis based on this exam, correlate with serum enzymes. Subcutaneous soft tissue edema about the abdomen and pelvis suggesting anasarca. Splenomegaly. THIS IS AN ELECTRONICALLY VERIFIED FINAL REPORT 03/23/2025 8:11 PM - Electronically signed by Jorge Alberto Hughes DO
--- NOTE | 2025-03-23 20:27 | CT ---
EXAM: CTA CHEST WITH CONTRAST HISTORY: Elevated D-dimer COMPARISON: None. TECHNIQUE: Axial images were acquired of the chest with IV contrast for a CT angiogram. Coronal and sagittal images were provided. All images were reviewed in a variety of windows and levels. 3D 8 mm thick MIPS images were provided. RADIATION REDUCTION TECHNIQUE: Automated exposure control, Adjustment of the mA and/or kV according to patient size, or iterative reconstruction techniques were used. 8 mm thick axial MIPS images were provided. FINDINGS: CHEST: THYROID GLAND: The thyroid gland is unremarkable. HEART AND VESSELS: The heart size is within normal limits. There is no evidence of a pericardial effusion. The thoracic aorta is normal in size without evidence of aneurysm or dissection. The main pulmonary artery size is within normal limits. Exam is markedly limited due to bolus timing. The central pulmonary arterial system does not demonstrate central filling defects to suggest pulmonary emboli. The distal branches beyond this point are not properly evaluated. Please note that this exam is considered markedly limited and therefore close monitoring with follow up imaging may be obtained as a clinically indicated. LYMPHNODES: There is no evidence of axillary, mediastinal, or hilar lymphadenopathy AIRWAY: The trachea and mainstem bronchi are patent. No intraluminal lesions are seen. LUNGS: Small bilateral pleural effusions are noted. Tiny focus of consolidation is seen in the right upper lung zone. No evidence of pneumothorax. ESOPHAGUS: The esophagus is grossly unremarkable. BONES: The visualized bones demonstrate degenerative changes. There are no concerning lytic or blastic lesions identified. UPPER ABDOMINAL STRUCTURES: The visualized portions of the upper abdominal structures demonstrates moderate amount of free fluid around the liver and spleen with gallbladder wall irregularity. IMPRESSION: 1. Exam is markedly limited due to bolus timing. The central pulmonary arterial system does not demonstrate central filling defects to suggest pulmonary emboli. The distal branches beyond this point are not properly evaluated. Please note that this exam is considered markedly limited and therefore close monitoring with follow up imaging may be obtained as a clinically indicated. 2. Small bilateral pleural effusions are noted. 3. Tiny focus of consolidation is seen in the right upper lung zone. This may represent acute or chronic airspace disease. Follow-up to complete resolution may be obtained as clinically indicated. 4. The visualized portions of the upper abdominal structures demonstrates moderate amount of free fluid around the liver and spleen with gallbladder wall irregularity. THIS IS AN ELECTRONICALLY VERIFIED FINAL REPORT 03/23/2025 8:23 PM - Electronically signed by Brady Childs MD
--- NOTE | 2025-03-23 20:46 | VAS ---
EXAM: LOWER EXT VENOUS, BILATERAL HISTORY: Bilateral LOWER extremity EDEMA; COMPARISON: None available TECHNIQUE: Ultrasound of the deep veins of the bilateral lower extremities FINDINGS: Normal compression, flow and augmentation in the deep veins bilaterally. No thrombus. There is edema in the subcutaneous soft tissues bilaterally. IMPRESSION: Negative for DVT bilaterally. Bilateral lower extremity edema. THIS IS AN ELECTRONICALLY VERIFIED FINAL REPORT 03/23/2025 8:42 PM - Electronically signed by Zoran Us MD
[2025-03-23] MEDS ORDERED: CONSULT PHARMACY - POTASSIUM & MAGNESIUM XX SCH (22:43)
[2025-03-23] MEDS ORDERED: TYLENOL 325 MG TAB PO PRN (22:43)
[2025-03-23] MEDS: OMNIPAQUE 350 mg/mL 100 mL BTL 100 ML ONE (22:45)
[2025-03-23] MEDS: NORCO 5/325 MG TAB PO PRN (23:02)
[2025-03-23 23:07] VITALS: BMI 32.7
[2025-03-24 04:47] LABS: MEAN PLATELET VOLUME 8.9 fL (7.4-11.0); RED CELL DISTRIBUTION WIDTH 14.7 % (11.6-16.5)
[2025-03-24 04:59] LABS: COR CA(FOR HYPOALB) 9.3 mg/dL (8.5-10.1); CREATININE 1.11 mg/dL (0.70-1.30); eGFR NON BLACK RACES > 60 (>60)
[2025-03-24] MEDS: LASIX IVP SCH ×2 (08:33→20:48)
--- NOTE | 2025-03-24 09:56 | DR.H&P ---
H&P History & Physical for Day of: H&P Date: 03/24/25 Chief Complaint Chief Complaint: worsening LE edema History of Present Illness History of Present Illness: Patient is a 40-year-old male with a past medical history of liver cirrhosis, hypertension, depression, alcohol use, thrombocytopenia and anemia presented with worsening lower extremity edema. He was seen in February for similar symptoms. He reports taking Lasix as prescribed. He did not follow-up with any provider. ER workup showed hemoglobin 8.7, INR 1.56, elevated LFTs and D-dimer. BNP was 215. He had CTA chest done which was negative for PE. CTAP showed cirrhosis and portal hypertension along with anasarca and ascites. He was started on IV Lasix and admitted for further evaluation. He denies any active bleeding. His hemoglobin is 7.2 this morning. He does have some bruising on the right foot, reports dropping something heavy. He reports some pain, range of motion fairly intact. Labs/imaging reviewed: - WBC 6 hemoglobin 7.2 platelets 57 potassium 3.9 creatinine 1.11 AST 93 ALT 34 - INR 1.56 BNP 215 - Lower extremity ultrasound negative for DVT - CTA and CTAP reviewed Plan: Continue IV Lasix, changed to twice daily. Monitor I's and O's and daily weight. Resume spironolactone. Replace electrolytes as per protocol. Order anemia panel, stool occult. Repeat hemoglobin at 12 PM, if below 7 then consider transfusion. Ambulate as tolerated. Monitor a.m. labs and imaging. Time spent for clinical assessment, reviewing labs/imaging, physical exam, decision making and documentation greater than 45 mins. Past Medical History Past Medical History: Arthritis, Depression, Gout and Hypertension Past Surgical History Surgical History: No History Family History Family Medical History: Coronary Artery Disease and Hypertension Social History Does patient currently use any type of tobacco product: No Have you used tobacco products in the last 12 months: No Type of Tobacco Use: None Does any household member use tobacco: No Alcohol Use: Heavy Drug Use: Marijuana Medications Home Medications: Home Medications Medication Instructions Recorded Confirmed Type NK 03/23/25 03/23/25 History Allergies Allergies Allergy/AdvReac Type Severity Reaction Status Date / Time No Known Allergies Allergy Verified 03/23/25 17:04 Labs 03/24/25 04:08 03/24/25 04:08 Labs: Laboratory WBC 6.0 X10^3/uL (3.6-10.0) 03/24/25 04:08 RBC 2.01 X10^6/uL (4.7-6.0) L 03/24/25 04:08 Hgb 7.2 g/dL (13.5-18.0) L 03/24/25 04:08 Hct 20.6 % (42.0-54.0) L 03/24/25 04:08 MCV 102.2 fL (80.0-100.0) H 03/24/25 04:08 MCH 35.7 pg (27.0-34.0) H 03/24/25 04:08 MCHC 34.9 g/dL (33.0-35.0) 03/24/25 04:08 RDW 14.7 % (11.6-16.5) 03/24/25 04:08 Plt Count 57 X10^3/uL (150.0-450.0) L 03/24/25 04:08 MPV 8.9 fL (7.4-11.0) 03/24/25 04:08 Neut % (Auto) 55.4 % (42.0-75.0) 03/24/25 04:08 Lymph % (Auto) 29.6 % (21.0-51.0) 03/24/25 04:08 [place] % (Auto) 9.0 % (0.0-13.0) 03/24/25 04:08 Eos % (Auto) 5.0 % (0.9-2.9) H 03/24/25 04:08 Baso % (Auto) 1.0 % (0.2-1.0) 03/24/25 04:08 Neut # (Auto) 3.3 x10^3/uL (2.2-4.8) 03/24/25 04:08 Lymph # (Auto) 1.8 X10^3/uL (1.3-2.9) 03/24/25 04:08 [place] # (Auto) 0.5 x10^3/uL (0.3-0.8) 03/24/25 04:08 Eos # (Auto) 0.3 x10^3/uL (0.0-0.2) H 03/24/25 04:08 Baso # (Auto) 0.1 X10^3/uL (0.0-0.1) 03/24/25 04:08 Absolute Nucleated RBC 0.0 /100WBC 03/24/25 04:08 PT 18.9 SECONDS (11.8-14.3) 03/23/25 17:05 INR Target Range - 03/23/25 17:05 INR 1.56 (0.8-1.3) H 03/23/25 17:05 APTT 40.3 SECONDS (22.9-36.5) H 03/23/25 17:05 PTT Comment - 03/23/25 17:05 D-Dimer 7.91 ug/ml (0.0-0.57) H 03/23/25 17:05 Sodium 138 mmol/L (136-145) 03/24/25 04:08 Corrected Sodium TNP 03/24/25 04:08 Potassium 3.9 mmol/L (3.5-5.1) 03/24/25 04:08 Chloride 105 mmol/L (98-107) 03/24/25 04:08 Carbon Dioxide 23.5 mmol/L (21-32) 03/24/25 04:08 BUN 11 mg/dL (7-18) 03/24/25 04:08 Creatinine 1.11 mg/dL (0.70-1.30) 03/24/25 04:08 Est GFR (MDRD) Af Amer > 60 (>60) 03/24/25 04:08 Est GFR (MDRD) Non-Af > 60 (>60) 03/24/25 04:08 Glucose 89 mg/dL (65-99) 03/24/25 04:08 Calcium 8.1 mg/dL (8.5-10.1) L 03/24/25 04:08 Corrected Calcium 9.3 mg/dL (8.5-10.1) 03/24/25 04:08 Iron 41 ug/dL (50-175) L 03/24/25 04:08 TIBC 157 ug/dL (250-450) L 03/24/25 04:08 % Saturation 26.1 % (11.0-46.0) 03/24/25 04:08 Ferritin 508 ng/mL (26-388) H 03/24/25 04:08 Total Bilirubin 5.50 mg/dL (0.2-1.0) H 03/24/25 04:08 AST 93 Units/L (15-37) H 03/24/25 04:08 ALT 34 Units/L (12-78) 03/24/25 04:08 Alkaline Phosphatase 168 Units/L (46-116) H 03/24/25 04:08 Troponin I High Sens 29.9 ng/L (4.0-60.0) 03/23/25 23:23 B-Natriuretic Peptide 215 pg/mL (0-79) H 03/23/25 17:05 Total Protein 5.9 g/dL (6.4-8.2) L 03/24/25 04:08 Albumin 2.5 g/dL (3.4-5.0) L 03/24/25 04:08 Globulin 3.4 g/dL (2.5-4.5) 03/24/25 04:08 Albumin/Globulin Ratio 0.7 Ratio (1.1-2.1) L 03/24/25 04:08 Folate 1.9 ng/mL (>8.6) L 03/24/25 04:08 Review of Systems Constitutional: No Symptoms Reported Eyes: No Symptoms Reported ENT: No Symptoms Reported Respiratory: Shortness of Breath Cardiovascular: Edema Gastrointestinal: No Symptoms Reported Genitourinary: No Symptoms Reported Musculoskeletal: Foot Pain Skin: No Symptoms Reported Neurological: No Symptoms Reported Physical Exam Vital Signs: Vital Signs Temperature 97.8 F Pulse Rate 83 Respiratory Rate 20 Respiratory Rate 24 Blood Pressure 134/57 O2 Sat by Pulse Oximetry 98 Oriented: Normal Respiratory: Clear Throughout Cardiovascular: Normal and Edema (Bilateral 2+ edema) Auscultation: Bowel Sounds: Normal Palpation: Normal Tenderness: Normal Skin: Bruising Musculoskeletal: Normal Psychiatric: Normal Mood Description: Calm Affect: Normal Speech Pattern: Clear and Appropriate Assessment/Plan (1) Ascites: Qualifiers: Ascites type: due to alcoholic cirrhosis Qualified Code(s): K70.31 - Alcoholic cirrhosis of liver with ascites Status: Acute (2) Lower extremity edema: Status: Chronic (3) Anemia: Qualifiers: Anemia type: unspecified type Qualified Code(s): D64.9 - Anemia, unspecified Status: Acute (4) Elevated liver function tests: Status: Acute (5) Alcohol abuse: Status: Chronic (6) Liver cirrhosis: Qualifiers: Ascites presence: with ascites Hepatic cirrhosis type: alcoholic cirrhosis Qualified Code(s): K70.31 - Alcoholic cirrhosis of liver with ascites Status: Chronic Review H&P Reviewed: Yes Patient was examined?: Yes
[2025-03-24] MEDS: ALDACTONE TAB 25 MG PO SCH (11:10)
[2025-03-24] MEDS: PROTONIX TAB 40 MG PO SCH (11:10)
[2025-03-24] MEDS: ULTRAM PO PRN (13:20)
--- NOTE | 2025-03-24 16:44 | RAD ---
EXAM: FOOT, RIGHT HISTORY: S/P FALL EDEMA SWELLING; COMPARISON: None. TECHNIQUE: 3 views FINDINGS: No acute fracture or dislocation. 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 Normal midfoot alignment. Moderate dorsal midfoot and forefoot subcutaneous edema. IMPRESSION: No acute osseous findings. THIS IS AN ELECTRONICALLY VERIFIED FINAL REPORT 03/24/2025 4:40 PM - Electronically signed by Hubert Merlos MD
[2025-03-24] MEDS: LASIX ONE (17:23)
[2025-03-25 05:06] LABS: MEAN PLATELET VOLUME 8.8 fL (7.4-11.0); RED CELL DISTRIBUTION WIDTH 14.9 % (11.6-16.5)
[2025-03-25 05:14] LABS: COR CA(FOR HYPOALB) 9.2 mg/dL (8.5-10.1); CREATININE 1.02 mg/dL (0.70-1.30); eGFR NON BLACK RACES > 60 (>60)
[2025-03-25] MEDS ORDERED: CONSULT PHARMACY - POTASSIUM & MAGNESIUM XX SCH (06:00)
[2025-03-25] MEDS: LASIX IVP SCH (08:48)
[2025-03-25] MEDS: MAG-OX TAB PO SCH (08:49)
[2025-03-25] MEDS: K-DUR TAB 20 MEQ PO SCH (08:49)
[2025-03-25] MEDS ORDERED: ULTRAM PO PRN ×2 (09:43→09:46)
[2025-03-25] MEDS: VITAMIN B-1 PO SCH (10:19)
--- NOTE | 2025-03-25 10:50 | PCM.PROG ---
Progress Note Progress Note for Day of Date of Exam: 03/25/25 Subjective Subjective: Patient is a 40-year-old male with a past medical history of liver cirrhosis, hypertension, depression, alcohol use, thrombocytopenia and anemia presented admitted with anasarca and ascites. This morning he is resting in bed. No acute events overnight. He did have significant urine output. He reports that his lower extremities have reduced edema. Labs/imaging reviewed: - WBC 5.2, hemoglobin 7.9, glucose 60, sodium 137, potassium 3.5, creatinine 1.02, glucose 100, AST 88, ALT 36, ALP 153, folate 1.9, magnesium 1.7, iron 41. - Lower extremity ultrasound negative for DVT - CTA and CTAP reviewed Plan: Continue IV Lasix twice daily. Monitor I's and O's and daily weight. Continue spironolactone. Replace electrolytes as per protocol. After reviewing hemoglobin from February, it has trended down. Possibly just due to anemia of chronic disease. However, will get general surgeryDr. Yao to further evaluate and give his recommendation. Add thiamine. Order echo. Otherwise continue with current treatment plan. Ambulate as tolerated. Monitor a.m. labs and imaging. Time spent for clinical assessment, reviewing labs/imaging, physical exam, decision making and documentation greater than 45 mins. Past Medical Family Social History Allergies: Allergies No Known Allergies Allergy (Verified 03/23/25 17:04) Review of Systems ROS changes noted: see HPI Vital Signs and I&O's Vital Signs: Vital Signs Temperature 98.0 F Pulse Rate 79 Respiratory Rate 18 Respiratory Rate 18 Respiratory Rate 20 Respiratory Rate 20 Blood Pressure 151/70 O2 Sat by Pulse Oximetry 100 Intake and Output: Intake & Output 03/22/25 03/23/25 03/24/25 03/25/25 23:59 23:59 23:59 23:59 Intake Total 1760 / 1760 410 / 410 Output Total 5950 / 5950 650 / 650 Balance -4190 / -4190 -240 / -240 Physical Exam Oriented: Normal Respiratory: Normal Cardiovascular: Normal and Edema (Bilateral 1+ edema) Auscultation: Bowel Sounds: Normal Tenderness: Normal Skin: Bruising Musculoskeletal: Normal Psychiatric: Normal Mood Description: Calm Affect: Normal Speech Pattern: Clear and Appropriate Laboratory and Diagnostics 03/25/25 04:23 03/25/25 04:23 Labs: Laboratory WBC 5.2 X10^3/uL (3.6-10.0) 03/25/25 04:23 RBC 2.21 X10^6/uL (4.7-6.0) L 03/25/25 04:23 Hgb 7.9 g/dL (13.5-18.0) L 03/25/25 04:23 Hct 22.6 % (42.0-54.0) L 03/25/25 04:23 MCV 102.4 fL (80.0-100.0) H 03/25/25 04:23 MCH 35.9 pg (27.0-34.0) H 03/25/25 04:23 MCHC 35.1 g/dL (33.0-35.0) H 03/25/25 04:23 RDW 14.9 % (11.6-16.5) 03/25/25 04:23 Plt Count 60 X10^3/uL (150.0-450.0) L 03/25/25 04:23 MPV 8.8 fL (7.4-11.0) 03/25/25 04:23 Neut % (Auto) 58.3 % (42.0-75.0) 03/25/25 04:23 Lymph % (Auto) 27.4 % (21.0-51.0) 03/25/25 04:23 [place] % (Auto) 7.4 % (0.0-13.0) 03/25/25 04:23 Eos % (Auto) 5.4 % (0.9-2.9) H 03/25/25 04:23 Baso % (Auto) 1.5 % (0.2-1.0) H 03/25/25 04:23 Neut # (Auto) 3.0 x10^3/uL (2.2-4.8) 03/25/25 04:23 Lymph # (Auto) 1.4 X10^3/uL (1.3-2.9) 03/25/25 04:23 [place] # (Auto) 0.4 x10^3/uL (0.3-0.8) 03/25/25 04:23 Eos # (Auto) 0.3 x10^3/uL (0.0-0.2) H 03/25/25 04:23 Baso # (Auto) 0.1 X10^3/uL (0.0-0.1) 03/25/25 04:23 Absolute Nucleated RBC 0.1 /100WBC 03/25/25 04:23 PT 18.9 SECONDS (11.8-14.3) 03/23/25 17:05 INR Target Range - 03/23/25 17:05 INR 1.56 (0.8-1.3) H 03/23/25 17:05 APTT 40.3 SECONDS (22.9-36.5) H 03/23/25 17:05 PTT Comment - 03/23/25 17:05 D-Dimer 7.91 ug/ml (0.0-0.57) H 03/23/25 17:05 Sodium 137 mmol/L (136-145) 03/25/25 04:23 Corrected Sodium TNP 03/25/25 04:23 Potassium 3.5 mmol/L (3.5-5.1) 03/25/25 04:23 Chloride 101 mmol/L (98-107) 03/25/25 04:23 Carbon Dioxide 26.7 mmol/L (21-32) 03/25/25 04:23 BUN 13 mg/dL (7-18) 03/25/25 04:23 Creatinine 1.02 mg/dL (0.70-1.30) 03/25/25 04:23 Est GFR (MDRD) Af Amer > 60 (>60) 03/25/25 04:23 Est GFR (MDRD) Non-Af > 60 (>60) 03/25/25 04:23 Glucose 100 mg/dL (65-99) H 03/25/25 04:23 Calcium 8.2 mg/dL (8.5-10.1) L 03/25/25 04:23 Corrected Calcium 9.2 mg/dL (8.5-10.1) 03/25/25 04:23 Magnesium 1.7 mg/dL (2.0-2.9) L 03/25/25 04:23 Iron 41 ug/dL (50-175) L 03/24/25 04:08 TIBC 157 ug/dL (250-450) L 03/24/25 04:08 % Saturation 26.1 % (11.0-46.0) 03/24/25 04:08 Ferritin 508 ng/mL (26-388) H 03/24/25 04:08 Total Bilirubin 7.20 mg/dL (0.2-1.0) H 03/25/25 04:23 AST 88 Units/L (15-37) H 03/25/25 04:23 ALT 36 Units/L (12-78) 03/25/25 04:23 Alkaline Phosphatase 153 Units/L (46-116) H 03/25/25 04:23 Troponin I High Sens 29.9 ng/L (4.0-60.0) 03/23/25 23:23 B-Natriuretic Peptide 215 pg/mL (0-79) H 03/23/25 17:05 Total Protein 6.5 g/dL (6.4-8.2) 03/25/25 04:23 Albumin 2.8 g/dL (3.4-5.0) L 03/25/25 04:23 Globulin 3.7 g/dL (2.5-4.5) 03/25/25 04:23 Albumin/Globulin Ratio 0.8 Ratio (1.1-2.1) L 03/25/25 04:23 Folate 1.9 ng/mL (>8.6) L 03/24/25 04:08 Plan (1) Ascites: Status: Acute Qualifiers: Ascites type: due to alcoholic cirrhosis Qualified Code(s): K70.31 - Alcoholic cirrhosis of liver with ascites (2) Lower extremity edema: Status: Chronic (3) Anemia: Status: Acute Qualifiers: Anemia type: unspecified type Qualified Code(s): D64.9 - Anemia, unspecified (4) Elevated liver function tests: Status: Acute (5) Alcohol abuse: Status: Chronic (6) Liver cirrhosis: Status: Chronic Qualifiers: Hepatic cirrhosis type: alcoholic cirrhosis Ascites presence: with ascites Qualified Code(s): K70.31 - Alcoholic cirrhosis of liver with ascites
[2025-03-25] MEDS: AYR NASAL DROPS PRN (14:54)
[2025-03-26 04:30] VITALS: TEMP 98.1
[2025-03-26 05:03] LABS: MEAN PLATELET VOLUME 9.3 fL (7.4-11.0); RED CELL DISTRIBUTION WIDTH 14.4 % (11.6-16.5)
[2025-03-26 05:16] LABS: COR CA(FOR HYPOALB) 9.3 mg/dL (8.5-10.1); CREATININE 1.08 mg/dL (0.70-1.30); eGFR NON BLACK RACES > 60 (>60)
[2025-03-26] MEDS ORDERED: CONSULT PHARMACY - POTASSIUM & MAGNESIUM XX SCH (06:00)
[2025-03-26] MEDS ORDERED: NS 500 ML IV 500 ML IV PRN (06:48)
[2025-03-26] MEDS: DIPRIVAN VIAL 20 ML ONE ×2 (08:39→09:05)
[2025-03-26] MEDS: LR 1,000 ML IV 100 ML IV PRN (08:58)
[2025-03-26] MEDS: LR 1,000 ML IV 1,000 ML IV ONE (08:59)
[2025-03-26] MEDS ORDERED: K-RIDER 10 MEQ/100 ML WATER 10 MEQ/100 ML BAG IV SCH (09:00)
[2025-03-26] MEDS: XYLOCAINE 2 % (PLAIN) IVP PRN (09:03)
[2025-03-26] MEDS: DIPRIVAN VIAL 250 ML IVP PRN (09:04)
[2025-03-26] MEDS: MAGNESIUM SULFATE 1 GRAM/100 mL PREMIX 1 G/100 ML BAG IV SCH (09:38)
[2025-03-26] MEDS: POTASSIUM CHL IV NR (09:44)
[2025-03-26] MEDS: CMPD IV NR (09:44)
[2025-03-26] MEDS: NS 0.45% IV NR (09:44)
[2025-03-26 15:47] VITALS: O2SAT 100
[2025-03-26 15:51] VITALS: BP 133/62; PULSE 86; RESP 19
== END 2025-03-26 11:10 | disposition home or self-care (01) ==
LOC: ER 15:35 → ICU 15:35
PROVIDERS: ADMIT Internal Medicine; ATTEND Internal Medicine
DX: E87.1 Hypo-osmolality and hyponatremia; D64.9 Anemia, unspecified; R68.89 Other general symptoms and signs; S90.31XA Contusion of right foot, initial encounter; R79.1 Abnormal coagulation profile; J90 Pleural effusion, not elsewhere classified; I35.8 Other nonrheumatic aortic valve disorders; R73.09 Other abnormal glucose; K70.31 Alcoholic cirrhosis of liver with ascites; E83.51 Hypocalcemia; R79.89 Other specified abnormal findings of blood chemistry; R60.0 Localized edema; W22.8XXA Striking against or struck by other objects, initial encounter; D72.829 Elevated white blood cell count, unspecified; R06.02 Shortness of breath; K29.70 Gastritis, unspecified, without bleeding; R16.1 Splenomegaly, not elsewhere classified; E87.6 Hypokalemia; D69.6 Thrombocytopenia, unspecified; R19.5 Other fecal abnormalities; F10.10 Alcohol abuse, uncomplicated; I27.20 Pulmonary hypertension, unspecified